=== PATIENT | male | born 2000 | race Hispanic/Latino ===

== ENCOUNTER 2021-11-04 11:01 | Emergency (ER) | payer OTHER, SELFPAY ==
[2021-11-04 11:16] VITALS: BP 133/72; PULSE 73; RESP 16; TEMP 36.6; O2SAT 100
--- NOTE | 2021-11-04 11:28 | ED.MALEGU ---
HPI - Male Genitourinary General Chief complaint: Urogenital-Male Stated complaint: Std Testing Time Seen by Provider: 11/04/21 11:57 Source: patient and RN notes reviewed Mode of arrival: ambulatory Limitations: no limitations History of Present Illness HPI Narrative: 21 y/o male presented for c/o flat red lesions to the left side of penis for 10 days. States at the onset there were 2 small red spots, then started spreading. Denies penile discharge or pain. States it feels 'calm' after showering. Pt was treated for epididymitis 3 weeks ago, and states his girlfriend tested negative for 'everything' since then as well. Related Data Home Medications Medication Instructions Recorded Confirmed doxycycline hyclate 100 mg capsule mg 11/04/21 Allergies Allergy/AdvReac Type Severity Reaction Status Date / Time pomegranate Allergy Unknown HIVES Verified 11/04/21 11:11 Review of Systems Review of Systems: CONSTITUTIONAL: Denies body aches, fever, chills, or sweats. CARDIOVASCULAR: Denies chest pain, palpitations, or edema. RESPIRATORY: Denies cough or dyspnea. GASTROINTESTINAL: Denies abdominal pain, nausea, vomiting, or diarrhea. GENITOURINARY: reports skin changes denies discharge, dysuria, frequency, urgency, hematuria, flank pain SKIN: Denies rash, itching, or wounds. MUSCULOSKELETAL: Denies back pain or myalgia. PMFSH Comments At time of signature, I have reviewed and agree with nursing past medical, surgical, social and family history unless otherwise noted. Please see nursing chart for further information. There is no relevant family history pertinent to the presenting complaint Exam Narrative: GENERAL: Well-appearing and in no acute distress. ENT: Mucous membranes pink and moist. CHEST: Clear to auscultation. HEART: Regular rate and rhythm. ABDOMEN: Soft, nontender, nondistended, normal active bowel sounds. No CVA tenderness : RN witness exam; pinpoint flat erythematous circular lesions to glans c/w balanitis SKIN: Warm, dry, no rash. NEURO: Alert and oriented x3. PSYCH: Normal affect. Course Course Emergency Course: Patient is aware of diagnosis, understands and agrees to treatment plan. Anticipatory guidance given. Patient agrees to follow-up as directed and is aware of reasons to seek care at the emergency department. Portions of this record may have been created with voice recognition software Level of Care: Express Care Visit Vital Signs Vital signs: Vital Signs Temperature 97.9 F 11/04/21 11:16 Pulse Rate 73 11/04/21 11:16 Respiratory Rate 16 11/04/21 11:16 Blood Pressure 133/72 11/04/21 11:16 Pulse Oximetry 100 11/04/21 11:16 Oxygen Delivery Room Air 11/04/21 11:16 Temperature 97.9 F 11/04/21 11:16 Pulse Rate 73 11/04/21 11:16 Respiratory Rate 16 11/04/21 11:16 Blood Pressure 133/72 11/04/21 11:16 Pulse Oximetry 100 11/04/21 11:16 Oxygen Delivery Room Air 11/04/21 11:16 Reviewed MDM - Male Genitourinary MDM Narrative Medical decision making narrative: PE c/w balanitis. Rx clotrimazole.He follows with urology for chronic right testicular pain, which has resolved since treatment for epididymitis. Advised supportive measures and signs/symptoms to go to the ER. Pt is appropriate for outpt treatment and f/u. Differential Diagnosis Differential diagnosis: Likely urinary tract infection, urethritis, epididymitis and genital herpes simplex Discharge Plan Discharge Clinical Impression: Balanitis Patient Disposition: Home, Self-Care Condition: Stable Instructions: Antibiotic Form Additional Instructions: Keep the area clean and dry Use the cream as directed follow up with your primary care provider/ urologist as needed in 1-2 weeks Go to the ER for worsening symptoms or concerns Prescriptions: New clotrimazole 1 % cream 1 applic topical BID 14 Days Qty: 30 0RF No Action doxycycline hyclate 100 mg ca
--- NOTE | 2021-11-04 12:46 | PC.NURSE ---
1214 exam of penile area done by surfboard designer with rn at bedside. small red bumps to left distal penis noted.
== END 2021-11-04 12:14 | disposition home or self-care (01) ==
PROVIDERS: Emergency Provider Nurse Practitioner Family
DX: N48.1 Balanitis (principal)
CPT/HCPCS: 99213; G0463